=== PATIENT | female | born 1990 | race Caucasian/White ===

== ENCOUNTER → 2023-06-26 14:54 | Outpatient (REF) | payer BC, SELFPAY | LOC: PNTC 14:54 | PROVIDERS: ATTENDING PHYSICIAN Obstetrics & Gynecology | DX: O09.529 Supervision of elderly multigravida, unspecified trimester (principal); O99.210 Obesity complicating pregnancy, unspecified trimester | CPT/HCPCS: 76816 ==

== ENCOUNTER → 2023-07-24 15:00 | Outpatient (REF) | payer BC, SELFPAY | LOC: PNTC 15:00 | PROVIDERS: ATTENDING PHYSICIAN Obstetrics & Gynecology | DX: O09.529 Supervision of elderly multigravida, unspecified trimester (principal) | CPT/HCPCS: 76816 ==

== ENCOUNTER → 2023-08-11 14:56 | Outpatient (REF) | payer BC, SELFPAY | LOC: PNTC 14:56 | PROVIDERS: ATTENDING PHYSICIAN Obstetrics & Gynecology | DX: O09.529 Supervision of elderly multigravida, unspecified trimester (principal); O99.210 Obesity complicating pregnancy, unspecified trimester | CPT/HCPCS: 59025; 76815 ==

== ENCOUNTER → 2023-08-18 14:50 | Outpatient (REF) | payer BC, SELFPAY | LOC: PNTC 14:50 | PROVIDERS: ATTENDING PHYSICIAN Obstetrics & Gynecology | DX: O09.529 Supervision of elderly multigravida, unspecified trimester (principal); O99.210 Obesity complicating pregnancy, unspecified trimester | CPT/HCPCS: 59025; 76815 ==

== ENCOUNTER → 2023-08-25 15:00 | Outpatient (REF) | payer BC, SELFPAY | LOC: PNTC 15:00 | PROVIDERS: ATTENDING PHYSICIAN Obstetrics & Gynecology | DX: O09.529 Supervision of elderly multigravida, unspecified trimester (principal); O99.210 Obesity complicating pregnancy, unspecified trimester | CPT/HCPCS: 76816 ==

== ENCOUNTER → 2023-09-01 14:59 | Outpatient (REF) | payer BC, SELFPAY | LOC: PNTC 14:59 | PROVIDERS: ATTENDING PHYSICIAN Obstetrics & Gynecology | DX: O99.210 Obesity complicating pregnancy, unspecified trimester (principal); O09.529 Supervision of elderly multigravida, unspecified trimester | CPT/HCPCS: 59025; 76815 ==

== ENCOUNTER → 2023-09-08 15:00 | Outpatient (REF) | payer BC, SELFPAY | LOC: PNTC 15:00 | PROVIDERS: ATTENDING PHYSICIAN Obstetrics & Gynecology | DX: O09.529 Supervision of elderly multigravida, unspecified trimester (principal); O99.210 Obesity complicating pregnancy, unspecified trimester | CPT/HCPCS: 59025; 76815 ==

== ENCOUNTER 2023-09-15 07:46 | Inpatient (IN) | payer BC, SELFPAY ==
[2023-09-15 08:00] VITALS: BP 121/86; BMI 38.3
[2023-09-15 08:25] LABS: Hematocrit 32.2 % (37.0-47.0); Hemoglobin 11.3 g/dL (12.0-16.0); Mean Corp Hgb Conc. 35.1 g/dL (33.0-37.0); Mean Corpuscular Hgb 29.9 pg (27.0-31.0); Mean Corpuscular Volume 85.2 fL (81.0-99.0); Mean Platelet Volume 8.8 fL (7.4-10.4); Platelet Count 239 10^3/uL (130-400); Red Blood Cell Count 3.78 10^6/uL (4.20-5.40); Red Cell Dist. Width 14.8 % (11.5-14.5); White Blood Cell Count 9.5 10^3/uL (4.8-10.8)
[2023-09-15] MEDS: LR 1000 IV (08:25)
[2023-09-15] MEDS: ANCEF 10 IV (08:25)
[2023-09-15] MEDS: TYLENOL 1000 MG PO (08:25)
[2023-09-15] MEDS: BICITRA 30 ML PO (08:25)
[2023-09-15] MEDS: METHERGINE INJECTION 0.200000000000000011 MG IM (11:05)
[2023-09-15] MEDS: TRANEXAMIC ACID 100 IV (11:18)
[2023-09-15] MEDS: PITOCIN 30 UNITS/NSS 500 ML IV (12:00)
[2023-09-15] MEDS: CYTOTEC 800 MCG RECTAL (12:35)
[2023-09-15] MEDS: TYLENOL 650 MG PO ×3 (12:49→21:18)
[2023-09-15] MEDS: TORADOL 15 MG IV ×2 (15:54→21:57)
[2023-09-16] MEDS: TORADOL 15 MG IV ×2 (04:11→09:43)
[2023-09-16] MEDS: SENOKOT-S 1 TABLET PO (04:11)
[2023-09-16] MEDS: TYLENOL 650 MG PO ×5 (04:18→22:12)
[2023-09-16 05:25] LABS: Hematocrit 28.2 % (37.0-47.0); Hemoglobin 9.8 g/dL (12.0-16.0); Mean Corp Hgb Conc. 34.8 g/dL (33.0-37.0); Mean Corpuscular Hgb 30.3 pg (27.0-31.0); Mean Corpuscular Volume 87.3 fL (81.0-99.0); Mean Platelet Volume 9.2 fL (7.4-10.4); Platelet Count 275 10^3/uL (130-400); Red Blood Cell Count 3.23 10^6/uL (4.20-5.40); Red Cell Dist. Width 14.6 % (11.5-14.5); White Blood Cell Count 15.1 10^3/uL (4.8-10.8)
--- NOTE | 2023-09-16 07:39 | W.PN.ANS.POP ---
Anesthesia Post Operative
- Anesthesia Post Op Note
Vital Signs Stable-See Nursing Note: Yes
Airway Patent: Yes
Adequate Pain Control: Yes
Change in Mental Status: No
Current Postoperative Nausea & Vomiting: No
Anesthesia Complications: No
General Anesthetic Recall: No (N/A)
Unplanned Admission: No
Post Op Hydration Adequate: Yes
[2023-09-16] MEDS: MOTRIN 600 MG PO ×2 (15:56→22:12)
[2023-09-16] MEDS: MYLICON 80 MG PO (18:09)
[2023-09-17] MEDS: TYLENOL 650 MG PO ×2 (04:17→10:26)
[2023-09-17] MEDS: MOTRIN 600 MG PO ×2 (04:17→10:26)
[2023-09-17] MEDS: FEOSOL 325 MG PO (08:35)
[2023-09-17] MEDS: SENOKOT-S 1 TABLET PO (08:35)
--- NOTE | 2023-09-17 10:55 | W.DS.TRANS ---
DC Summary - [employer]
-
Discharge Instructions:
Discharge Diagnosis/Procedures term , delivered; s/p RLTCS; anemia
Instructions:
Stand-Alone Forms: LDRP Delivery
Changes to Home Medications: No
Discharge Medications:
DC Medications w/original date entered in [facility]
vitamin-ferrous sulfate 27 mg iron-folic acid 0.8 mg tablet 1 tab PO DAILY Supplement 06/13/21
acetaminophen 325 mg tablet 650 mg (2 x 325 mg) PO Q4HPRN PRN mild pain #0 tabs 09/17/23
ferrous sulfate 325 mg (65 mg iron) tablet (FeroSul) 325 mg PO DAILY #0 tabs 09/17/23
ibuprofen 600 mg tablet 600 mg PO Q6HPRN PRN cramps #60 tabs 09/17/23
sennosides 8.6 mg-docusate sodium 50 mg tablet (Stool Softener-Stimulant Laxative) 1 tab PO DAILYPRN PRN constipation #0 tabs 09/17/23
Home Medication Changes
Pending Results: No
Total time spent discharging patient (in min): 20
[2023-09-17 14:27] LABS: Syphilis/T. pallidum Ab Reflex Negative (Negative)
== END 2023-09-17 12:28 | disposition home or self-care (01) | DRG 788 ==
LOC: LDRP 07:46
PROVIDERS: ADMITTING PHYSICIAN Obstetrics & Gynecology; FAMILY PHYSICIAN Internal Medicine
PROC: 10D00Z1 Extraction of Products of Conception, Low, Open Approach (ICD-10-PCS; 2023-09-15)
DX: O34.211 Maternal care for low transverse scar from previous cesarean delivery (principal); O77.0 Labor and delivery complicated by meconium in amniotic fluid; Z3A.39 39 weeks gestation of pregnancy; Z37.0 Single live birth; N85.8 Other specified noninflammatory disorders of uterus; O62.2 Other uterine inertia; O99.02 Anemia complicating childbirth; D25.9 Leiomyoma of uterus, unspecified; O34.13 Maternal care for benign tumor of corpus uteri, third trimester
CPT/HCPCS: 85027; 86780; 86850; 86900; 86901